=== PATIENT | male | born 1990 | race Caucasian/White ===

== ENCOUNTER → 2019-03-13 | Outpatient (CLI) | payer OTHER ==
[2019-03-13 17:26] LABS: BASOPHIL % 0.4 % (0-2); PLATELET COUNT 238 x10^3mcL (130-400); RED CELL DISTRIBUTION WIDTH 13.4 % (11.5-14.5)
[2019-03-13 17:38] LABS: ALBUMIN 4.2 g/dL (3.4-5.0); ALKALINE PHOSPHATASE 46 U/L (46-116); ALT/SGPT 79 U/L (16-63); AST/SGOT 34 U/L (15-37); BILIRUBIN TOTAL 0.32 mg/dL (0.20-1.00); CALCIUM 8.2 mg/dL (8.5-10.1); CARBON DIOXIDE 22.3 mmol/L (21-32); CHLORIDE SERUM 106 mmol/L (98-107); GFR1 > 60 mL/min; GLUCOSE SERUM 92 mg/dL (74-106); HDL CHOLESTEROL 39 mg/dL (40-60); POTASSIUM SERUM 4.1 mmol/L (3.5-5.1); SODIUM SERUM 142 mmol/L (136-145)
[2019-03-13 17:40] LABS: CHOLESTEROL 215 mg/dL (<200); CHOLESTEROL/HDL RATIO 5.5; TRIGLYCERIDES 204 mg/dL (<150)
== END | disposition home or self-care (01) ==
LOC: US 16:17
PROC: BW40ZZZ Ultrasonography of Abdomen (ICD-10-PCS; principal; 2019-03-13)
DX: K76.0 Fatty (change of) liver, not elsewhere classified (principal); Z83.42 Family history of familial hypercholesterolemia

== ENCOUNTER → 2019-04-10 | Outpatient (CLI) | payer OTHER ==
[2019-04-10 17:51] LABS: microscopic required? NO
[2019-04-10 18:05] LABS: urine erythrocyte NEGATIVE (NEGATIVE)
[2019-04-10 18:14] LABS: BASOPHIL % 0.5 % (0-2); PLATELET COUNT 234 x10^3mcL (130-400); RED CELL DISTRIBUTION WIDTH 13.1 % (11.5-14.5)
[2019-04-10 18:33] LABS: ALBUMIN 4.5 g/dL (3.4-5.0); ALKALINE PHOSPHATASE 57 U/L (46-116); ALT/SGPT 78 U/L (16-63); AST/SGOT 32 U/L (15-37); BILIRUBIN TOTAL 0.43 mg/dL (0.20-1.00); CALCIUM 8.9 mg/dL (8.5-10.1); CARBON DIOXIDE 26.3 mmol/L (21-32); CHLORIDE SERUM 102 mmol/L (98-107); CREATININE SERUM 0.9 mg/dL (0.7-1.3); GFR1 > 60 mL/min; GLUCOSE SERUM 93 mg/dL (74-106); MAGNESIUM 2.2 mg/dL (1.8-2.4); PHOSPHOROUS 4.2 mg/dL (2.5-4.9); POTASSIUM SERUM 3.9 mmol/L (3.5-5.1); SODIUM SERUM 138 mmol/L (136-145)
[2019-04-10 18:39] LABS: TOTAL PROTEIN, SERUM 8.4 g/dL (6.4-8.2)
[2019-04-12 05:08] LABS: RAPID PLASMA REAGIN Non Reactive (Non Reactive)
[2019-04-12 09:10] LABS: ALPHA FETOPROTEIN TUMOR MARKER 0.8 ng/mL (0.0-8.3)
[2019-04-12 13:05] LABS: PTH INTACT 42 pg/mL (15-65)
== END | disposition home or self-care (01) ==
LOC: CT 17:19
DX: K76.9 Liver disease, unspecified (principal); E83.51 Hypocalcemia; E66.9 Obesity, unspecified; R94.5 Abnormal results of liver function studies
CPT/HCPCS: 82306; 87491; 87591; Q9967